=== PATIENT | male | born 1965 | race Two or more races ===

== ENCOUNTER 2023-12-19 17:03 | Inpatient (IN) | payer MEDICAID, OTHER ==
[~2023-12-19] VITALS: Ht 188 cm; Wt 125.7 kg
[2023-12-19 19:16] LABS: Basophils # (auto) 0 10 ^3/uL (0-0.2); Basophils % (auto) 0.2 % (0.0-2.0); Eosinophils # (auto) 0.1 10 ^3/uL (0-0.8); Eosinophils % (auto) 0.3 % (0.0-7.0); Hematocrit 40.1 % (41.0-53.0); Hemoglobin 13.4 g/dL (13.5-17.5); Lymphocytes # (auto) 1.4 10 ^3/uL (0.4-5.4); Lymphocytes % (auto) 8.1 % (10.0-50.0); Mean Corpuscular Hgb Conc. 33.5 g/dL (32.0-36.0); Mean Corpuscular Volume 83.8 fL (80.0-100.0); Monocytes # (auto) 1.4 10 ^3/uL (0-1.3); Monocytes % (auto) 8.1 % (0.0-12.0); Neutrophils # (auto) 14.3 10 ^3/uL (1.6-8.6); Neutrophils % (auto) 83.3 % (37.0-80.0); Red Blood Cells 4.79 10^6/uL (4.5-5.90); Red Cell Distribution Width 14.8 % (11.8-14.3); White Blood Cell 17.2 10^3/uL (4.4-10.8)
[2023-12-19] MEDS ORDERED: VANCOMYCIN PER PHARMACY 0 MG IV SCH (19:30)
[2023-12-19 19:36] LABS: Alanine Aminotransferase 76 U/L (7-40); Albumin 4.4 g/dL (3.2-4.8); Alkaline Phosphatase 167 U/L (46-116); Anion Gap 8 (5-15); Aspartate Aminotransferase 54 U/L (13-40); BUN/Creatinine Ratio 10.6 (10.0-20.0); Bilirubin, Total 0.9 mg/dL (0.2-1.0); Blood Urea Nitrogen 12 mg/dL (9-23); Calcium 9.7 mg/dL (8.5-10.1); Carbon Dioxide 29 mmol/L (20-30); Chloride 100 mmol/L (98-107); Glucose 106 mg/dL (74-106); Sodium 137 mmol/L (136-145); Total Protein 7.8 g/dL (5.7-8.2)
[2023-12-19 19:44] LABS: CRP High Sensitivity > 20.00 mg/dL (<1.0)
[2023-12-19 20:36] LABS: Lactic Acid w/Reflex 2.6 mmol/L (0.4-2.0)
[2023-12-19 20:41] LABS: Erythrocyte Sedimentation Rate 85 mm/hr (0-20)
[2023-12-19] MEDS ORDERED: HYDROcodone-ACET 5/325MG TAB PO PRN (21:30)
[2023-12-19] MEDS ORDERED: DOCUSATE SOD 100 MG CAP PO PRN (21:30)
[2023-12-19] MEDS ORDERED: ACETAMINOPHEN 325 MG TAB PO PRN (21:30)
[2023-12-19] MEDS ORDERED: ONDANSETRON HCL 4 MG/2 ML VIAL IV PRN (21:30)
[2023-12-19] MEDS: SODIUM CHLOR 0.9% PF (SALINE LOCK) 10ML VIAL/SYR IV SCH (22:13)
[2023-12-19] MEDS: SODIUM CHLORIDE 0.9% 2,450 ML IV ONE (22:13)
[2023-12-19] MEDS: POTASSIUM CHL 20 Meq TABLET PO ONE (22:13)
[2023-12-19] MEDS: SODIUM CHLORIDE 0.9% 1,000 ML IV ONE (22:14)
[2023-12-19] MEDS: PIPERACILLIN-TAZOB 3.375GM 100 ML IV ONE (22:27)
[2023-12-19] MEDS: IOHEXOL 300 MG/ML 100ML BOTTLE IJ ONE (23:41)
[2023-12-20] VITALS (9 sets, daily range): BP systolic 116–140; BP diastolic 63–77; PULSE 80–95; RESP 18–20; TEMP 97.6–99.6; O2SAT 93–98
[2023-12-20] MEDS: VANCOMYCIN 1GM/200ML 200 ML IV ONE ×2 (01:57→15:46)
[2023-12-20 05:13] LABS: Basophils # (auto) 0 10 ^3/uL (0-0.2); Basophils % (auto) 0.1 % (0.0-2.0); Eosinophils # (auto) 0.1 10 ^3/uL (0-0.8); Eosinophils % (auto) 0.5 % (0.0-7.0); Hematocrit 34.7 % (41.0-53.0); Hemoglobin 11.5 g/dL (13.5-17.5); Lymphocytes # (auto) 1.4 10 ^3/uL (0.4-5.4); Lymphocytes % (auto) 9.9 % (10.0-50.0); Mean Corpuscular Hgb Conc. 33.2 g/dL (32.0-36.0); Mean Corpuscular Volume 84.5 fL (80.0-100.0); Monocytes # (auto) 1.2 10 ^3/uL (0-1.3); Monocytes % (auto) 8.1 % (0.0-12.0); Neutrophils # (auto) 11.6 10 ^3/uL (1.6-8.6); Neutrophils % (auto) 81.4 % (37.0-80.0); Red Cell Distribution Width 14.4 % (11.8-14.3); White Blood Cell 14.2 10^3/uL (4.4-10.8)
[2023-12-20 05:15] LABS: Alanine Aminotransferase 56 U/L (7-40); Albumin 3.5 g/dL (3.2-4.8); Alkaline Phosphatase 135 U/L (46-116); Anion Gap 7 (5-15); Aspartate Aminotransferase 36 U/L (13-40); Bilirubin, Total 0.7 mg/dL (0.2-1.0); Blood Urea Nitrogen 12 mg/dL (9-23); Calcium 8.6 mg/dL (8.5-10.1); Carbon Dioxide 26 mmol/L (20-30); Chloride 104 mmol/L (98-107); Glucose 124 mg/dL (74-106); Potassium 3.1 mmol/L (3.5-5.1); Sodium 137 mmol/L (136-145); Total Protein 6.2 g/dL (5.7-8.2)
[2023-12-20] MEDS: CLINDAMYCIN 600MG IV 50 ML IV SCH (06:38)
[2023-12-20] MEDS ORDERED: VANCOMYCIN PER PHARMACY 0 MG IV SCH (14:45)
[2023-12-20] MEDS ORDERED: MORPHINE SULFATE INJ 2 MG/ml SYRG IV PRN (14:45)
[2023-12-20] MEDS: POTASSIUM CHL 20 Meq TABLET PO ONE (15:46)
[2023-12-20] MEDS: SODIUM CHLORIDE 0.9% 1,000 ML IV SCH (15:49)
[2023-12-20 18:13] LABS: Urine Bacteria FEW /hpf (None Seen); Urine Blood Negative /uL (Negative); Urine Clarity Clear (Clear); Urine Color Yellow (Yellow); Urine Protein, UAD Negative (Negative); Urine Specific Gravity 1.012 (1.001-1.035); Urine Urobilinogen 6 mg/dL (Negative); Urine WBC 1 /hpf (0 - 3); Urine pH 5.5 (5.0-9.0)
[2023-12-21 01:00] VITALS: BP 130/83; PULSE 87; RESP 18; TEMP 98.6; O2SAT 98
[2023-12-21] MEDS: VANCOMYCIN 1GM/200ML 200 ML IV SCH ×2 (03:39→22:15)
[2023-12-21 05:00] VITALS: BP 130/76; PULSE 85; RESP 16; TEMP 97.8; O2SAT 96
[2023-12-21 06:42] LABS: Anion Gap 10 (5-15); Calcium 8.9 mg/dL (8.7-10.4); Carbon Dioxide 27 mmol/L (20-30); Chloride 104 mmol/L (98-107); Potassium 3.6 mmol/L (3.5-5.1); Sodium 141 mmol/L (136-145)
[2023-12-21 06:48] LABS: BUN/Creatinine Ratio 13.9 (10.0-20.0); Blood Urea Nitrogen 11 mg/dL (9-23); Glucose 87 mg/dL (74-106)
[2023-12-21 08:05] LABS: Basophils # (auto) 0 10 ^3/uL (0-0.2); Basophils % (auto) 0.4 % (0.0-2.0); Eosinophils # (auto) 0.1 10 ^3/uL (0-0.8); Eosinophils % (auto) 1.3 % (0.0-7.0); Hematocrit 34.9 % (41.0-53.0); Hemoglobin 11.9 g/dL (13.5-17.5); Lymphocytes # (auto) 1.7 10 ^3/uL (0.4-5.4); Lymphocytes % (auto) 16.1 % (10.0-50.0); Mean Corpuscular Hgb Conc. 34.3 g/dL (32.0-36.0); Mean Corpuscular Volume 84.7 fL (80.0-100.0); Monocytes # (auto) 1.1 10 ^3/uL (0-1.3); Monocytes % (auto) 10.3 % (0.0-12.0); Neutrophils # (auto) 7.7 10 ^3/uL (1.6-8.6); Neutrophils % (auto) 71.9 % (37.0-80.0); Red Blood Cells 4.12 10^6/uL (4.5-5.90); Red Cell Distribution Width 14.7 % (11.8-14.3); White Blood Cell 10.7 10^3/uL (4.4-10.8)
[2023-12-21 08:11] VITALS: BP 133/95; PULSE 86; RESP 19; TEMP 98.1; O2SAT 94
[2023-12-21 11:39] VITALS: BP 142/77; PULSE 89; RESP 16; TEMP 98.3; O2SAT 92
[2023-12-21 16:50] VITALS: BP 144/88; PULSE 84; RESP 17; TEMP 98.1; O2SAT 97
[2023-12-21 21:00] VITALS: BP 144/83; PULSE 79; RESP 20; TEMP 98.2; O2SAT 96
[2023-12-22 05:00] VITALS: BP 147/74; PULSE 90; RESP 20; TEMP 98; O2SAT 96
[2023-12-22 06:04] LABS: Basophils # (auto) 0 10 ^3/uL (0-0.2); Basophils % (auto) 0.3 % (0.0-2.0); Eosinophils # (auto) 0.1 10 ^3/uL (0-0.8); Eosinophils % (auto) 1.2 % (0.0-7.0); Hematocrit 37.7 % (41.0-53.0); Hemoglobin 12.5 g/dL (13.5-17.5); Lymphocytes % (auto) 15.9 % (10.0-50.0); Mean Corpuscular Hemoglobin 28.7 pg (28.0-32.0); Mean Corpuscular Hgb Conc. 33.2 g/dL (32.0-36.0); Mean Corpuscular Volume 86.3 fL (80.0-100.0); Monocytes # (auto) 1.2 10 ^3/uL (0-1.3); Monocytes % (auto) 9.1 % (0.0-12.0); Neutrophils # (auto) 9.3 10 ^3/uL (1.6-8.6); Neutrophils % (auto) 73.5 % (37.0-80.0); Nucleated Red Blood Cells % 0.1 %; Red Blood Cells 4.37 10^6/uL (4.5-5.90); Red Cell Distribution Width 14.8 % (11.8-14.3); White Blood Cell 12.6 10^3/uL (4.4-10.8)
[2023-12-22 06:12] LABS: Calcium 8.8 mg/dL (8.7-10.4); Potassium 3.6 mmol/L (3.5-5.1)
[2023-12-22 06:18] LABS: BUN/Creatinine Ratio 11.4 (10.0-20.0)
[2023-12-22 06:19] LABS: Albumin 3.5 g/dL (3.2-4.8)
[2023-12-22 08:15] VITALS: BP_SYST 143; BP_SYST 167; BP_DIAS 103; BP_DIAS 92; PULSE 104; RESP 17; RESP 18; TEMP 98.8; O2SAT 91; O2SAT 93
[2023-12-22 12:20] VITALS: BP 110/72; PULSE 96; RESP 17; TEMP 98.7; O2SAT 94
[2023-12-22 16:29] VITALS: BP 150/84; PULSE 85; RESP 17; TEMP 98.5; O2SAT 96
[2023-12-22 22:00] VITALS: BP 132/68; PULSE 85; RESP 19; TEMP 98.2; O2SAT 97
[2023-12-23 05:00] VITALS: BP 136/87; PULSE 85; RESP 18; TEMP 98.5; O2SAT 95
[2023-12-23 08:51] VITALS: BP 142/89; PULSE 84; RESP 18; TEMP 98.6; O2SAT 97
[2023-12-23 10:58] LABS: Alanine Aminotransferase 53 U/L (7-40); Albumin 3.3 g/dL (3.2-4.8); Alkaline Phosphatase 152 U/L (46-116); Anion Gap 7 (5-15); Aspartate Aminotransferase 28 U/L (13-40); BUN/Creatinine Ratio 14.3 (10.0-20.0); Blood Urea Nitrogen 12 mg/dL (9-23); Calcium 8.7 mg/dL (8.5-10.1); Carbon Dioxide 24 mmol/L (20-30); Chloride 108 mmol/L (98-107); Glucose 92 mg/dL (74-106); Potassium 4.1 mmol/L (3.5-5.1); Sodium 139 mmol/L (136-145)
[2023-12-23 10:59] LABS: Bilirubin, Total 0.3 mg/dL (0.2-1.0); Total Protein 6.5 g/dL (5.7-8.2)
[2023-12-23 11:14] LABS: Hematocrit 36.9 % (41.0-53.0); Hemoglobin 12.3 g/dL (13.5-17.5); Mean Corpuscular Hemoglobin 28.5 pg (28.0-32.0); Mean Corpuscular Hgb Conc. 33.4 g/dL (32.0-36.0); Mean Corpuscular Volume 85.5 fL (80.0-100.0); Red Blood Cells 4.32 10^6/uL (4.5-5.90); Red Cell Distribution Width 14.7 % (11.8-14.3)
[2023-12-23 12:06] LABS: Basophils % (manual) 0 (0.0-2.0); Blast Cells 0; Metamyelocytes % 0; Myelocytes % 0; Promyelocytes % 0; Reactive Lymphocytes 0
[2023-12-23 12:36] VITALS: BP 129/64; PULSE 81; RESP 18; TEMP 99.5; O2SAT 96
[2023-12-23 14:42] LABS: Band Neutrophils % (manual) 4; Eosinophils % (manual) 1 (0-7); Lymphocytes % (manual) 32 (10.0-50.0); Monocytes % (manual) 4 (0-12); Platelet Estimate Adequate
[2023-12-23 16:38] VITALS: BP 133/88; PULSE 75; RESP 18; TEMP 98.3; O2SAT 97
[2023-12-23 21:00] VITALS: BP 154/69; PULSE 85; RESP 18; TEMP 98.5; O2SAT 97
[2023-12-24 01:00] VITALS: BP 127/69; PULSE 99; RESP 18; TEMP 98.1; O2SAT 98
[2023-12-24 05:00] VITALS: BP 152/93; PULSE 80; RESP 19; TEMP 98.6; O2SAT 97
[2023-12-24 08:00] VITALS: PULSE 98; RESP 19
[2023-12-24 08:46] VITALS: BP 174/90; PULSE 81; RESP 19; TEMP 98.3; O2SAT 98
[2023-12-24] MEDS: levoFLOXacin 500 MG TAB PO SCH (10:00)
[2023-12-24] MEDS ORDERED: LEVO500T91 PO (11:42)
[2023-12-24] MEDS ORDERED: CLIN1CAP70 PO (11:42)
[2023-12-24 12:34] VITALS: BP 147/69; PULSE 86; RESP 19; TEMP 98.2; O2SAT 94
[2023-12-24 16:34] VITALS: BP 125/60; PULSE 79; RESP 19; TEMP 98.4; O2SAT 94
== END 2023-12-24 20:00 | disposition home or self-care (01) | DRG 720 ==
LOC: ER 17:03 → OVERFLOW 21:31 → WEST WING 12-20 02:13
PROVIDERS: ADMIT Internal Medicine; ATTEND Internal Medicine
DX: A41.9 Sepsis, unspecified organism (principal); L03.115 Cellulitis of right lower limb; L03.116 Cellulitis of left lower limb; E87.6 Hypokalemia; E66.01 Morbid (severe) obesity due to excess calories; F15.10 Other stimulant abuse, uncomplicated; R74.01 Elevation of levels of liver transaminase levels; I10 Essential (primary) hypertension; Z85.828 Personal history of other malignant neoplasm of skin; Z68.35 Body mass index [BMI] 35.0-35.9, adult
CPT/HCPCS: 36415; 71045; 73701; 80048; 80053; 80069; 80202; 81001; 82565; 83605; 83735; 83880; 84484; 85007; 85025; 85027; 85652; 86141; 87040; 93970; 99291; G0378; J2543; J3490